=== PATIENT | female | born 1990 | race Caucasian/White ===

== ENCOUNTER 2024-08-26 13:33 | Emergency (ER) | payer MEDICAID, SELFPAY ==
--- NOTE | 2024-08-26 13:45 | XR_ITS ---
Examination: CT abdomen with intravenous contrast CT pelvis with intravenous contrast 2-D coronal reconstructions 2-D sagittal reconstructions Date and time of exam:August 26, 2024 1700 hours INDICATIONS: Lower abdominal pain diarrhea beginning 4 days ago. CTDI: vol (mGy) 7.45 DLP: (mGycm) 443 TECHNIQUE: Multiple axial sections abdomen pelvis with the 64 slice high-resolution scanner 3 mm axial sections post intravenous administration 60 cc Isovue 370 2-D sagittal coronal reconstructions Nodose protocols, automated exposure control, adjustment MA KV according to patient size FINDINGS: No focal liver or splenic lesions No gallstones No pancreatic mass Severe diffuse colitis pattern with wall thickening and hyperemia throughout the entire colon No hydronephrosis renal or ureteral calculi Appendix does not appear inflamed Tiny fat-containing umbilical hernia Anteverted uterus Partially ruptured left adnexal cyst 15 mm with surrounding free fluid, mild in the pelvis Contracted urinary bladder with mild wall thickening Osseous structures intact Impression: Severe diffuse colitis pattern, consider ulcerative colitis, Crohn's disease Partially ruptured 15 mm left adnexal cyst with surrounding free fluid, recommend pelvic sonography follow-up
--- NOTE | 2024-08-26 13:45 | PD.EDRME ---
Rapid Medical Screening Exam RME Arrival date/time: 08/26/24 13:33 34-year-old female presents emergency department complaint of abdominal pain vomiting diarrhea and abdominal distention Chief Complaint: Abdominal Pain Time Seen by Provider: 08/26/24 13:41
[2024-08-26 13:47] VITALS: BP 130/92; PULSE 98; RESP 18; TEMP 36.4; O2SAT 98; BMI 25.3
[2024-08-26] MEDS: ONDANSETRON ODT 4 MG TABRAP PO (14:09)
[2024-08-26 14:10] LABS: Basophils # (Auto) 0.1 Thou/mm3 (0.0-0.2); Basophils % (Auto) 1 % (0-2.5); Eosinophils # (Auto) 0.1 Thou/mm3 (0.0-0.5); Eosinophils % (Auto) 1 % (0-10); Hematocrit 42.2 % (36.0-46.0); Hemoglobin 14.3 g/dL (12.0-16.0); Immature Granulocytes % (Auto) 1 % (0-0); Immature Granulocytes Auto 0.08 Thou/mm3 (0.00-0.00); Lymphocytes # (Auto) 1.2 Thou/mm3 (1.0-4.8); Lymphocytes % (Auto) 13 % (10-50); Mean Corpuscular HGB Conc 33.9 g/dl (31.0-37.0); Mean Corpuscular Hemoglobin 30.4 pg (25.0-35.0); Mean Corpuscular Volume 90 fL (80-100); Monocytes # (Auto) 1.7 Thou/mm3 (0.0-0.8); Monocytes % (Auto) 18 % (0-12); Neutrophils # (Auto) 6.6 Thou/mm3 (1.8-7.7); Neutrophils % (Auto) 68 % (37-80); Nucleated Red Blood Cell % 0 /100 WBC (0); Platelet Count 207 Thou/mm3 (140-440); RDW Standard Deviation 41.6 fL (36.4-46.3); Red Blood Count 4.71 Miln/mm3 (4.00-5.20); White Blood Count 9.7 Thou/mm3 (3.6-11.0)
[2024-08-26 14:25] LABS: Collection Type, Urine Clean Catch
[2024-08-26 14:28] LABS: Alanine Aminotransferase 18 U/L (10-49); Albumin, Serum 4.4 gm/dL (3.5-5.0); Albumin/Globulin Ratio 1.4 (1.2-2.2); Alkaline Phosphatase 59 U/L (46-116); Anion Gap 6 (7-16); Aspartate Amino Transferase 17 U/L (0-34); BUN/Creatinine Ratio 14 Ratio (12-20); Bilirubin,Total 0.3 mg/dL (0.3-1.2); Blood Urea Nitrogen 11 mg/dL (9-23); Calcium 9.6 mg/dL (8.3-10.6); Calcium (Corrected) 9.6 mg/dL (8.5-10.1); Carbon Dioxide 26.9 mMol/L (20.0-31.0); Chloride 98 mMol/L (98-107); Creatinine (Component) 0.8 mg/dL (0.6-1.3); Estimated Creatinine Clearance 98.5 mL/min (>60); Globulin 3.2 gm/dL (2.3-3.5); Glucose 90 mg/dL (74-106); Lipase 32 U/L (12-53); Osmolality,Calculated 262 (275-295); Potassium 3.4 mMol/L (3.4-5.1); Sodium 131 mMol/L (136-145); Total Protein 7.6 gm/dL (5.7-8.2); eGFR > 60 See Note
[2024-08-26 14:29] LABS: HCG Qualitative,Urine Negative
[2024-08-26 14:37] LABS: Bilirubin,Urine Negative (Negative); Blood,Urine 2+ (Negative); Clarity,Urine Clear (Clear/Hazy); Color,Urine Yellow (Lt Yel-Yel); Culture Indicated,Urine Not Indicated; Glucose, Urine Negative (Negative); Hyaline Casts,Urine < 1 /hpf (0-1); Ketones,Urine 1+ (Negative); Leukocyte Esterase,Urine Negative (Negative); Nitrite,Urine Negative (Negative); Protein,Urine Trace (Neg - Trace); RBC,Urine 11 /hpf (0-3); Specific Gravity,Urine 1.016 (1.001-1.035); Squamous Epithelial Cell,Urine 4 /hpf (0-5); Urobilinogen,Urine Negative mg/dL (0.0-1.0); WBC,Urine 6 /hpf (0-5)
--- NOTE | 2024-08-26 17:56 | EDNOTE_ITS ---
ED Abdominal Pain RME/HPI General Chief Complaint: Abdominal Pain Stated complaint: Abdominal pain, diarrhea X 4 days Time seen by provider: 08/26/24 13:41 Arrival date/time: 08/26/24 13:33 RME / HPI RME / HPI narrative: 34-year-old female presents emergency department complaint of abdominal pain vomiting diarrhea and abdominal distention. Onset of symptoms for the last 4 days, severity of symptoms are mild. Patient denies any blood in the diarrhea. Denies any fever. Denies any other complaints no medication was taken prior travel. Related Data Previous Rx's ?Medication ?Instructions ?Recorded ciprofloxacin HCl 500 mg tablet 500 mg PO BID #14 tabs 08/26/24 (Cipro) dicyclomine 20 mg tablet 20 mg PO TID PRN abdominal pain 08/26/24 #20 tabs metronidazole 500 mg tablet 500 mg PO BID 7 days #14 tabs 08/26/24 Allergies Allergy/AdvReac Type Severity Reaction Status Date / Time NKA* Allergy Uncoded 09/13/11 03:06 Review of Systems Review of Systems Narrative Review of Systems: Review of system reviewed and within normal limits except mentioned in HPI ED Exam Narrative Physical exam: VITAL SIGNS: Reviewed. GENERAL APPEARANCE: Alert and interactive, follows commands, no acute distress, HEAD AND FACE: Non-traumatic. ENT: PERRL, pink conjunctivitis, eyelid no trauma, Mucous membrane moist. NECK: Supple, nontender, no nuchal rigidity. CHEST: No tenderness, no crepitus, no paradoxical movement, no retractions. LUNGS: Clear, well ventilated, symmetric, no rales, no wheezing, no ronchi, no stridor, good breath sounds bilaterally. HEART: Regular rate, regular rhythm, no murmur, no gallops. ABDOMEN: Soft, positive bowel sounds, nondistended, no guarding, diffuse abdominal tenderness, no rebound, no masses, RECTAL: Deferred. GENITAL: Deferred. NEUROLOGICAL: Gross motor function intact sensory function intact, Appropriate for age. MUSCULOSKELETAL: low back nontender, full range of motion. EXTREMITIES: Nontender, full range of motion. SKIN: Color pink, dry, no rash, no lacerations, no abrasions, no contusions. LYMPHATICS: Deferred. Course Quality Measures none Orders Category Date Time Status CT Screening NOW Care 08/26/24 13:45 Active Insert IV NOW Care 08/26/24 13:[address] abdomen pelvis w con Stat Exams 08/26/24 13:45 Completed CBC Stat Lab 08/26/24 14:04 Completed Comprehensive Metabolic Panel Stat Lab 08/26/24 14:04 Completed HCG Qualitative,Urine Stat Lab 08/26/24 14:17 Completed Lipase Stat Lab 08/26/24 14:04 Completed UA, C/S IF [Urinalysis, C/S if Indicated] Stat Lab 08/26/24 14:17 Completed HYDROcodone/APAP 10/325 [Lacon 10/325] Med 08/26/24 17:56 Discontinued 1 tab PO X1 ONE Ondansetron Odt [Zofran Odt] Med 08/26/24 13:46 Discontinued 4 mg PO X1 ONE Trimethoprim/Sulfa 160/800 Ds [Bactrim Ds] Med 08/26/24 17:55 Discontinued 1 tab PO X1 ONE metroNIDAZOLE [Flagyl] Med 08/26/24 17:55 Discontinued 500 mg PO X1 ONE Vital Signs Vital signs: Vital Signs Temperature 97.5 F 08/26/24 13:47 Pulse Rate 98 08/26/24 13:47 Respiratory Rate 18 08/26/24 13:47 Blood Pressure 130/92 H 08/26/24 13:47 Pulse Oximetry (%) 98 08/26/24 13:47 Oxygen Delivery Method Room Air 08/26/24 13:47 Abdominal Pain MDM MDM Narrative MDM Narrative:: 34-year-old female presents emergency department complaint of abdominal pain vomiting diarrhea and abdominal distention. Onset of symptoms for the last 4 days, severity of symptoms are mild. Patient denies any blood in the diarrhea. Denies any fever. Denies any other complaints no medication was taken prior travel. Patient is able to workup all came back normal today CT scan of the abdomen and pelvis showed colitis probably inflammatory, could be Crohn's versus ulcerative colitis. Results discussed with the patient and family. Patient was given first dose of Flagyl and Cipro in the emergency room and was advised to follow- up closely with GI specialist for further management and evaluation. Patient agrees with the plan. Patient data External records reviewed:: None Clinical information provided by:: patient and family Social determinants that could affect healthcare access:: none Patient has the following chronic illnesses:: None How is presenting disease/condition affected by chronic disease/condition?: no chronic disease Evaluation data The following diagnostics were reviewed and interpreted by me:: lab results and radiology exam(s) Lab and/or radiology exams considered but not ordered:: None Interpretation Summary: Laboratory workup all came back unremarkable. CT scan of the abdomen pelvis showed Severe diffuse colitis pattern, consider ulcerative colitis, Crohn's disease Partially ruptured 15 mm left adnexal cyst with surrounding free fluid, recommend pelvic sonography follow-up Medications / Prescriptions Medications or Prescriptions considered but not ordered:: None Medication administrations:: Medication Administration History Discontinued Medications Hydrocodone Bitart/Acetaminophen (Hydrocodone/Apap 10/325 Tab) 1 tab PO X1 ONE Stop: 08/26/24 17:57 Metronidazole (Metronidazole 250 Mg Tablet) 500 mg PO X1 ONE Stop: 08/26/24 17:56 Ondansetron HCl (Ondansetron Odt 4 Mg Tabrap) 4 mg PO X1 ONE; Protocol Stop: 08/26/24 13:47 Last Admin: 08/26/24 14:09 Dose: 4 mg Documented By: Trimethoprim/Sulfamethoxazole (Trimethoprim/Sulfa 160/800 Ds Tablet) 1 tab PO X1 ONE Stop: 08/26/24 17:56 Conchita Robles Consultations Consultation(s) initiated? (list below): No Diagnosis Differential diagnosis abdominal pain: abdominal pain, gastroenteritis and other (Gastroenteritis) Most likely diagnosis given after review of the tests above:: Colitis, abdominal pain, gastroenteritis Admission Indicated Admission indicated?: not indicated Explain why admission is indicated or not indicated:: Stable for discharge Admission Request Was there a request for admission?: No Disposition Plan Disposition Plan: Discharge Discharge Attestation Discharge Attestation: The patient and all family members were given an opportunity to ask questions and understood the discharge instructions. Discharge instructions specifically effects, indications for sooner follow up or return to the emergency department, and the expected course of current diagnosis. Patient condition: Stable Discharge Plan Plan Patient Disposition: HOME (Self Care) Disposition Comment: Stable Prescriptions/Referrals Prescriptions/Med Rec: New ciprofloxacin HCl [Cipro] 500 mg tablet 500 mg PO BID Qty: 14 0RF metronidazole 500 mg tablet 500 mg PO BID 7 Days Qty: 14 0RF dicyclomine 20 mg tablet 20 mg PO TID PRN (Reason: abdominal pain) Qty: 20 0RF Referrals: Luis Basurto MD [Primary Care Provider] - In 1 week Problem List Clinical Impression: Enterocolitis, Inflammatory bowel disease Patient/Caregiver Discharge Instructions Discharge Activity: activity as tolerated Education Materials: Colitis Ulcerative Dc, Understanding Colitis Additional Instructions: Thank you for the opportunity for serving you today. You are stable for discharged . You are advised to: Follow-up with your PCP in 1 to 2 days and as per referral to GI specialist Return to ED for worsening of symptoms Increase oral fluids Take medication as prescribed Print Language: Venezuelan Stand Alone Forms: Bhavana Award Info., Patient Portal Info Letter PA/MARKETING OPERATIONS MANAGER Supervising Physician CARMELA/RAMOS Supervising Physician: MD Corinne
[2024-08-26] MEDS: metroNIDAZOLE 250 MG TABLET 500 MG PO (18:29)
[2024-08-26] MEDS: TRIMETHOPRIM/SULFA 160/800 DS TABLET 1 TAB PO (18:29)
[2024-08-26] MEDS: HYDROcodone/APAP 10/325 TAB PO (18:29)
== END 2024-08-26 18:45 | disposition home or self-care (01) ==
PROVIDERS: Nurse Practitioner Primary Care; Emergency Provider Emergency Medicine; PCP Family Medicine
DX: K52.9 Noninfective gastroenteritis and colitis, unspecified (principal)
CPT/HCPCS: 36415; 74177; 80053; 81001; 81025; 83690; 85025; 99285; A4649; Q0162; Q9967; A9270